=== PATIENT | male | born 1970 | race Hispanic/Latino ===

== ENCOUNTER 2017-09-12 10:41 | Emergency (ER) | payer OTHER, SELFPAY ==
[2017-09-12 10:59] VITALS: BP 119/77; PULSE 54; RESP 16; TEMP 36.2; O2SAT 100; BMI 31.5
--- NOTE | 2017-09-12 11:03 | DI.RAD.S_ITS ---
PROCEDURE: XR FINGER LT MIN 2V INDICATIONS: large rock crushed left thumb TECHNIQUE: AP hand, 2 views of the left thumb acquired. COMPARISON: None. FINDINGS: Bones: No fractures or dislocations. No suspicious bony lesions. Soft tissues: No suspicious soft tissue calcifications or foreign bodies. IMPRESSION: Negative for fracture. No soft tissue foreign bodies seen. Dictated by: Jewel Franco M.D. on 09/12/2017 at 11:43 Approved by: Jewel Franco M.D. on 09/12/2017 at 11:44
--- NOTE | 2017-09-12 11:03 | DI.RAD.S_ITS ---
PROCEDURE: XR WRIST LT MIN 3V INDICATIONS: large rock fell unto left arm TECHNIQUE: 4 views of the wrist were acquired. COMPARISON: None. FINDINGS: Bones: No fractures or dislocations. No suspicious bony lesions. Scaphoid view: Normal scaphoid Soft tissues: No suspicious soft tissue calcifications. IMPRESSION: Negative for fracture Dictated by: Jewel Franco M.D. on 09/12/2017 at 11:41 Approved by: Jewel Franco M.D. on 09/12/2017 at 11:43
[2017-09-12 12:35] VITALS: BP 107/69; PULSE 58; RESP 20; O2SAT 100
--- NOTE | 2017-09-12 18:25 | ED.UPPEXIN ---
HPI - Extremity Injury (Upper) General Chief Complaint: Extremity Injury, Upper Stated Complaint: LEFT HAND THUMB CUT Time Seen by Provider: 09/12/17 11:12 Source: patient Mode of arrival: ambulatory Limitations: no limitations History of Present Illness HPI narrative: Patient presents to the emergency department with a chief complaint of left thumb pain after work-related injury in which a heavy rock fell down onto his hand. His tetanus is up-to-date. He denies any shoulder or elbow pain. He is otherwise well and free of complaint complaint: injury to: left Onset (ago): hour(s) Other injuries: none Handedness: right Place: work Severity: mild Relieving factors: none Exacerbating factors: movement of extremity Context: direct blow Associated symptoms: denies other symptoms Related Data Allergies Allergy/AdvReac Type Severity Reaction Status Date / Time No Known Drug Allergies Allergy Verified 09/12/17 10:59 Review of Systems Review of Systems All systems reviewed & are unremarkable except as noted in HPI and below Constitutional Denies chills, Denies fever(s), Denies lethargy and Denies weakness Eyes Denies change in vision, Denies eye discharge, Denies irritation and Denies loss of vision ENT Ears, Nose, Mouth, and Throat: Denies change in voice, Denies neck pain and Denies sore throat Cardiovascular Denies chest pain, Denies irregular heart rhythm, Denies lightheadedness, Denies palpitations, Denies dyspnea, Denies dyspnea on exertion and Denies orthopnea Respiratory Denies cough, Denies dyspnea, Denies dyspnea on exertion and Denies wheezing Gastrointestinal Gastrointestinal: Denies abdominal pain, Denies change in bowel habits, Denies diarrhea, Denies nausea and Denies vomiting Genitourinary Denies hematuria, Denies flank pain, Denies urinary incontinence and Denies urinary urgency Musculoskeletal Reports limited range of motion and Denies neck pain Integumentary/Breasts Denies pruritus, Denies erythema, Denies rash and Reports wounds (Small superficial abrasion on the lateral aspect of left thumb) Neurologic Denies confusion, Denies loss of vision and Denies weakness Psychiatric Denies anxiety, Denies confusion, Denies depression, Denies homicidal ideation and Denies suicidal ideation Endocrine Denies palpitations Hematologic/Lymphatic Denies easy bruising Allergic/Immunologic Denies wheezing Exam Initial Vital Signs Initial Vital Signs: Vital Signs Temperature 97.1 F L 09/12/17 10:59 Pulse Rate 54 L 09/12/17 10:59 Respiratory Rate 16 09/12/17 10:59 Blood Pressure 119/77 09/12/17 10:59 Pulse Oximetry 100 09/12/17 10:59 Const General: cooperative and well developed Nutritional Appearance: well nourished Orientation: alert, awake, oriented x3 and not confused Resp Effort & Inspection: normal respiratory effort, able to speak in complete sentences, no respiratory distress and no use of accessory muscles Auscultation: clear to auscultation bilaterally, no rales, no rhonchi and no wheezes Cardio Rate: regular rate Rhythm: regular rhythm Heart Sounds: no click, no gallops, no murmurs and no rubs Pulses: normal peripheral pulses GI Inspection: non-distended Palpation: soft, no hepatosplenomegaly, No guarding, No pulsatile mass and No tender Auscultation: normal bowel sounds Skin General: no rashes or lesions noted, No jaundice and No petechiae Trauma: laceration (Superficial laceration, not requiring sutures to lateral aspect of thumb) Extrem Left upper extremity: hand Details: abnormal to inspection and abnormal ROM of finger (Pain to palpation anatomic snuffbox and with axial loading of thumb) Details: pain with active ROM and pain with passive ROM; no foreign bodies and no puncture wound Procedures Orthopedic Splinting/Casting Injury #1: Upper Extremity Immobilizer: thumb spica Course Orders Ordered: ED Orders 09/12/17 11:03 XR finger LT min 2V Stat XR wrist LT min 3V Stat Vital Signs - 8 hr 09/12/17 10:59 09/12/17 12:35 Temperature 97.1 F L Pulse Rate 54 L 58 L Respiratory Rate 16 20 Blood Pressure 119/77 Blood Pressure [Right Arm] 107/69 Pulse Oximetry 100 100 MDM - Extremity Injury (Upper) Differential Diagnosis Differential diagnosis: Likely sprain and strain of wrist, fracture of wrist, finger sprain and fracture of hand Medical Records Attestation: I reviewed the patient's medical records. Imaging Data wrist Xray: Attestation: I personally reviewed and interpreted this imaging study as follows: My impression: NAP Radiologist's impression: PROCEDURE: XR WRIST LT MIN 3V INDICATIONS: large rock fell unto left arm TECHNIQUE: 4 views of the wrist were acquired. COMPARISON: None. FINDINGS: Bones: No fractures or dislocations. No suspicious bony lesions. Scaphoid view: Normal scaphoid Soft tissues: No suspicious soft tissue calcifications. IMPRESSION: Negative for fracture Dictated by: Jewel Franco M.D. on 09/12/2017 at 11:41 Approved by: Jewel Franco M.D. on 09/12/2017 at 11:43 Thumb Xray: Attestation: I personally reviewed and interpreted this imaging study as follows: My impression: NAP Radiologist's impression: PROCEDURE: XR FINGER LT MIN 2V INDICATIONS: large rock crushed left thumb TECHNIQUE: AP hand, 2 views of the left thumb acquired. COMPARISON: None. FINDINGS: Bones: No fractures or dislocations. No suspicious bony lesions. Soft tissues: No suspicious soft tissue calcifications or foreign bodies. IMPRESSION: Negative for fracture. No soft tissue foreign bodies seen. Dictated by: Jewel Franco M.D. on 09/12/2017 at 11:43 Approved by: Jewel Franco M.D. on 09/12/2017 at 11:44 [facility] Narrative Medical decision making narrative: Though x-rays are interpreted as normal patient has pain with axial load and in the anatomic snuffbox of left thumb raising the suspicion of scaphoid fracture. Patient placed in a thumb spica as the result and encouraged to follow up within 1 week Discharge Plan Departure Patient Disposition: Home, Self-Care Clinical Impression: Contusion of left thumb, Scaphoid fracture Discharge Date/Time: 09/12/17 12:46 Interventions: ED Discharge Assessment Last Done: 09/12/17 12:45 Instructions: DI for Contusion Activity Restrictions/Additional Instructions: Wear splint for 1 week If you still have pain in 1 week we need to repeat an xray If you develop a bruise under your thumbnail we will need to drain it
== END 2017-09-12 12:46 | disposition home or self-care (01) ==
PROVIDERS: Emergency Provider Emergency Medicine
DX: S60.012A Contusion of left thumb without damage to nail, initial encounter (principal); S62.009A Unspecified fracture of navicular [scaphoid] bone of unspecified wrist, initial encounter for closed fracture; W20.8XXA Other cause of strike by thrown, projected or falling object, initial encounter; Y99.0 Civilian activity done for income or pay
CPT/HCPCS: 29280; 73110; 73140; 99283

== ENCOUNTER 2018-09-25 13:35 | Emergency (ER) | payer OTHER, SELFPAY ==
[2018-09-25 13:38] VITALS: BP 113/68; PULSE 64; RESP 15; TEMP 36.3; O2SAT 98; BMI 27.1
--- NOTE | 2018-09-25 14:55 | ED.HEATRA ---
HPI - Head Injury <ANNA Cornelius - Last Filed: 09/25/18 21:14> General Chief complaint: Head Injury Stated complaint: Hit head at work Time Seen by Provider: 09/25/18 14:37 Source: patient Mode of arrival: ambulatory Limitations: no limitations History of Present Illness HPI Narrative: 48-year-old healthy male presents emergency department after hitting his head on a wooden corner of a roof a few hours ago. A few seconds after the event complained of white spots in his vision and a brief episode of dizziness which resolved in less than a minute. Wound was previously bleeding that was controlled with pressure. Associated 1/10 dull diffuse headache at this time. Denies syncope, chest pain, double vision, loss of vision, nausea, vomiting, change in bowel or bladder symptoms. Related Data Allergies Allergy/AdvReac Type Severity Reaction Status Date / Time No Known Drug Allergies Allergy Verified 09/25/18 13:38 Review of Systems <ANNA Cornelius - Last Filed: 09/25/18 21:14> Review of Systems REVIEW OF SYSTEMS: GENERAL: Denies fever or chills. HENT: Reports laceration, see HPI EYES: No loss of vision, double vision, eye pain, or irritation. CARDIOVASCULAR: No chest pain or syncope. RESPIRATORY: No shortness of breath or cough. GASTROINTESTINAL: No nausea, vomiting, diarrhea, or constipation. GENITOURINARY: No flank pain or dysuria. MUSCULOSKELETAL: No pain, weakness, or deformities. INTEGUMENTARY: Reports laceration, see HPI. NEURO: No numbness, tingling, memory loss, or confusion. PSYCH: No behavior or mood changes. PFSH <ANNA Cornelius - Last Filed: 09/25/18 21:14> Medical History No significant medical problems (Acute) Social History Smoking Status: Smoker, status unknown Social History Smoking Status: Smoker, status unknown Exam <ANNA Cornelius - Last Filed: 09/25/18 21:14> Initial Vital Signs Initial Vital Signs: Vital Signs Temperature 97.4 F L 09/25/18 13:38 Pulse Rate 64 09/25/18 13:38 Respiratory Rate 15 09/25/18 13:38 Blood Pressure 113/68 09/25/18 13:38 Pulse Oximetry 98 09/25/18 13:38 PHYSICAL EXAMINATION: GENERAL: Well groomed, alert, and cooperative Answers questions promptly and appropriately. Vital signs noted. HENT: Slight swelling to the top of head, 5 cm laceration to top of scalp, bleeding controlled. Type of head tender to palpation. No lumps or hematoma is noted elsewhere around skull. Ear canals patent. Oral mucosa is pink and moist. EYES: PERRLA, EOMIs, conjunctiva pink, sclera white, no periorbital swelling. NECK: Full range of motion. No tenderness to palpation. CHEST: Normal to inspection and without deformities. CARDIOVASCULAR: S1 and S2 sounds normal. Regular rate and rhythm, no murmurs, clicks, or bruits. No pedal edema. RESPIRATORY: Normal respiratory rate, trachea midline, airway patent. No stridor, nasal flaring or accessory muscle use. Lungs are clear in all lubin without wheeze, rhonchi, or crackles. MUSCULOSKELETAL: Normal gait and coordination. Equal tone and mass bilaterally. No spinal tenderness or deformities. EXTREMITIES: CMS intact. Full range of motion and 5/5 strength to upper and lower extremities SKIN: Warm, dry, soft, appropriate color for ethnicity. No lesions, rashes, or wounds. NEURO: Alert and Oriented X 3. Good coordination. No ataxia, or sensory deficits, or cognitive issues. PSYCH: Appropriate affect and mood. <Quentin Rice DO - Last Filed: 09/27/18 07:25> Initial Vital Signs Initial Vital Signs: Vital Signs Temperature 97.4 F L 09/25/18 13:38 Pulse Rate 64 09/25/18 13:38 Respiratory Rate 15 09/25/18 13:38 Blood Pressure 113/68 09/25/18 13:38 Pulse Oximetry 98 09/25/18 13:38 Procedures <ANNA Cornelius - Last Filed: 09/25/18 21:14> Laceration Repair Head: Site: scalp Side (If applicable): right Size (cm): 5 Description: linear Depth: simple, single layer Amount of anesthesia used (mL): 0 Pre-repair: irrigated extensively Skin layer closed with: dion Number of sutures: 1 Scores <ANNA Cornelius - Last Filed: 09/25/18 21:14> Nexus Score for C-Spine Focal Neurologic deficit present: No Midline spinal tenderness present: No Altered level of conciousness present: No Intoxication present: No Distracting Injury Present: No Nexus Criteria for C-spine: 0 Course <Cinthya ANNA Deleon - Last Filed: 09/25/18 21:14> Course Narrative: Patient tolerated procedure well. Orders Ordered: Discontinued Medications Diphtheria/Tetanus/Acell Pertussis (Adacel) 0.5 ml IM .ONCE ONE Stop: 09/25/18 14:55 Last Admin: 09/25/18 15:03 Dose: 0.5 ml Reevaluation(s) Reevaluation #1: Bleeding remains controlled after dion, patient given his packed for wound. Consultations Consultation #1: Patient staffed with Dr. Rice whom agrees with plan of care. Vital Signs - 8 hr 09/25/18 13:38 09/25/18 16:12 09/25/18 16:33 Temperature 97.4 F L Pulse Rate 64 58 L 58 L Respiratory Rate 15 16 18 Blood Pressure 113/68 120/76 Blood Pressure [Right Arm] 118/77 Pulse Oximetry 98 100 96 <Quentin Rice DO - Last Filed: 09/27/18 07:25> Orders Ordered: Discontinued Medications Diphtheria/Tetanus/Acell Pertussis (Adacel) 0.5 ml IM .ONCE ONE Stop: 09/25/18 14:55 Last Admin: 09/25/18 15:03 Dose: 0.5 ml Vital Signs - 8 hr 09/25/18 13:38 09/25/18 16:12 09/25/18 16:33 Temperature 97.4 F L Pulse Rate 64 58 L 58 L Respiratory Rate 15 16 18 Blood Pressure 113/68 120/76 Blood Pressure [Right Arm] 118/77 Pulse Oximetry 98 100 96 MDM - Head Injury <ANNA Cornelius - Last Filed: 09/25/18 21:14> Medical Records Attestation: I reviewed the patient's medical records. Lab Data Attestation: I reviewed the patient's lab results. ABG Data Attestation: I personally reviewed and interpreted this ABG as follows: MDM Narrative Medical decision making narrative: Simple laceration repaired. Possible slight concussion the to mechanism of injury, no concern for cranial hemorrhage due to normal neuro exam, no loss of consciousness, her significant risk factors. The concern for cervical trauma due to lack of pain with palpation, full range of motion, and mechanism of injury. Note for work given per patient request. Strict return precautions and follow-up instructions discussed. Discharge Plan Departure Patient Disposition: Home Clinical Impression: Laceration Closed head injury Qualifiers: Encounter type: initial encounter Qualified Code(s): S09.90XA - Unspecified injury of head, initial encounter Discharge Date/Time: 09/25/18 16:33 Interventions: ED Discharge Assessment Last Done: 09/25/18 16:33 Instructions: DI for Laceration Repair -- [place], DI for Closed Head Injury Activity Restrictions/Additional Instructions: Thank you for entrusting me with your care today. As discussed, I have placed 1 staple in the laceration on her head, this can be removed in 7-14 days. You can return here for staple removal or a primary care, or urgent care. Please watch for signs of infection like pus from the wound, increased redness, or fever, if this occurs please return. You may shower but do not scrub the wound. Return if you experience syncope, vomiting, chest pain, difficulty breathing, or loss of vision. Follow up with their primary care provider as needed. She also received a tetanus vaccination, your arm maybe sore for a few days. Stand Alone Forms: Work Release Note <Quentin Rice DO - Last Filed: 09/27/18 07:25> [facility] Michael Attestation: I was available for consultation during this patient's emergency department encounter
[2018-09-25] MEDS: TET,DIPH,PERTUSS(ACELL),VAC/PF 0.5 ML SYRINGE IM (15:03)
[2018-09-25 16:12] VITALS: BP 118/77; PULSE 58; RESP 16; O2SAT 100
--- NOTE | 2018-09-25 16:13 | PC.NURSE ---
patient requesting tylenol for head pain
[2018-09-25 16:33] VITALS: BP 120/76; PULSE 58; RESP 18; O2SAT 96
== END 2018-09-25 16:33 | disposition home or self-care (01) ==
PROVIDERS: Emergency Provider Nurse Practitioner
DX: S01.01XA Laceration without foreign body of scalp, initial encounter (principal); W22.8XXA Striking against or struck by other objects, initial encounter; Y99.0 Civilian activity done for income or pay; Z23 Encounter for immunization
CPT/HCPCS: 12002; 90471; 99283; 90715

== ENCOUNTER 2018-10-07 09:23 | Emergency (ER) | payer OTHER, SELFPAY ==
[2018-10-07 09:42] VITALS: BP 120/70; PULSE 59; RESP 18; TEMP 36.7; O2SAT 98; BMI 26.9
--- NOTE | 2018-10-14 20:54 | ED_ITS ---
HPI - Recheck/Abnormal Lab/Rx General Chief Complaint: Recheck/Abnormal Lab/Rx Stated Complaint: Removal Of Brian. Time Seen by Provider: 10/07/18 09:50 Source: patient Mode of arrival: ambulatory Limitations: no limitations History of Present Illness HPI narrative: Patient comes emergency department for staple removal from his scalp. He had a laceration which was repaired with a staple about 10 days before. Patient denies complaints. No pain, swelling, or drainage. No fevers. No other complaints this time. Related Data Allergies Allergy/AdvReac Type Severity Reaction Status Date / Time No Known Drug Allergies Allergy Verified 10/07/18 09:42 Review of Systems Review of Systems ROS Unobtainable: All systems reviewed & are unremarkable except as noted in HPI and below Constitutional Denies chills, Denies fever(s), Denies lethargy and Denies weakness Eyes Denies change in vision, Denies eye discharge, Denies irritation and Denies loss of vision ENT Ears, Nose, Mouth, and Throat: Denies change in voice, Denies neck pain and Denies sore throat Cardiovascular Denies chest pain, Denies irregular heart rhythm, Denies lightheadedness, Denies palpitations, Denies dyspnea, Denies dyspnea on exertion and Denies orthopnea Respiratory Denies cough, Denies dyspnea, Denies dyspnea on exertion and Denies wheezing Gastrointestinal Gastrointestinal: Denies abdominal pain, Denies change in bowel habits, Denies diarrhea, Denies nausea and Denies vomiting Genitourinary Denies hematuria, Denies flank pain, Denies urinary incontinence and Denies urinary urgency Musculoskeletal Denies neck pain Integumentary/Breasts Denies pruritus, Denies erythema, Denies rash and Denies wounds Neurologic Denies confusion, Denies loss of vision and Denies weakness Psychiatric Denies anxiety, Denies confusion, Denies depression, Denies homicidal ideation and Denies suicidal ideation Endocrine Denies palpitations Hematologic/Lymphatic Denies easy bruising Allergic/Immunologic Denies wheezing [facility] Medical History No significant medical problems (Acute) Social History Smoking Status: Smoker, status unknown Social History Smoking Status: Smoker, status unknown Exam Narrative Exam Narrative: Patient has a single staple on his scalp. Wound is well healed and without signs of infection. Initial Vital Signs Initial Vital Signs: Vital Signs Temperature 98.1 F 10/07/18 09:42 Pulse Rate 59 L 10/07/18 09:42 Respiratory Rate 18 10/07/18 09:42 Blood Pressure 120/70 10/07/18 09:42 Pulse Oximetry 98 10/07/18 09:42 Const General: cooperative and well developed Nutritional Appearance: well nourished Orientation: alert, awake, oriented x3 and not confused HENDE Head: normocephalic and atraumatic Ears: external ears normal Nose: external nose normal and No nasal discharge Face and sinus: face symmetric and No dry mucous membranes Mouth: oral mucosae normal and moist mucous membranes Teeth and gingiva: dentition normal Eyes General: appearance normal, both eyes and all related structures Eyelids: eyelids normal Conjunctivae: conjunctivae normal Sclera: sclerae normal Pupils: PERRL EOM: EOM intact bilaterally Neck Neck: normal visual inspection, trachea midline, No lymphadenopathy, No midline deformity and No JVD Lymphatic: No lymphedema Resp Effort & Inspection: normal respiratory effort, able to speak in complete sentences, no audible wheezes and not labored Skin General: no rashes or lesions noted Neuro General: alert, oriented x3 and gait normal Speech: speech normal Extrem General: full ROM Psych Appearance: grossly normal and well kempt Course Course Narrative: Staple was removed in the emergency department. Patient has been given the usual indications for return. MDM - Recheck/Abnormal Lab/Rx Medical Records Attestation: I reviewed the patient's medical records. Lab Data Point of Care Testing Glucose POC 90 Discharge Plan Departure Patient Disposition: Home Clinical Impression: Encounter for removal of sutures Discharge Date/Time: 10/07/18 10:03 Interventions: ED Discharge Assessment Last Done: 10/07/18 10:03 Instructions: DI for Suture Removal Activity Restrictions/Additional Instructions: Your wound looks great today. Please follow up with the eye doctors to have your vision checked and address your ongoing blurry vision. There is no evidence of a stroke or other serious condition causing this today. Referrals: [facility] [Provider Group]
== END 2018-10-07 10:03 | disposition home or self-care (01) ==
PROVIDERS: Emergency Provider Emergency Medicine
DX: Z48.02 Encounter for removal of sutures (principal); Y99.0 Civilian activity done for income or pay
CPT/HCPCS: 82962; 99281; 99282